=== PATIENT | male | born 1950 | race African-American/Black ===

== ENCOUNTER 2018-03-07 04:26 | Emergency (ER) | payer MEDICARE ==
[2018-03-07] MEDS: HYDROmorphONE 1 MG/5 ML IV SYRINGE IV (04:41)
[2018-03-07] MEDS: ETOMIDATE 20 MG INJ IV (06:08)
== END 2018-03-07 07:26 | disposition home or self-care (01) ==
LOC: E/R 07:26
DX: S43.005A Unspecified dislocation of left shoulder joint, initial encounter (principal); X58.XXXA Exposure to other specified factors, initial encounter; Y92.9 Unspecified place or not applicable
CPT/HCPCS: 23650; 73030; 94770; 96374; 99285-25